=== PATIENT | female | born 1960 | race Caucasian/White ===

== ENCOUNTER 2016-08-20 10:35 | Emergency (ER) | payer OTHER ==
[2016-08-20 10:56] VITALS: TEMP 98.3; BMI 22.3
--- NOTE | 2016-08-20 11:52 | PDOC ---
History of Present Illness - General Chief Complaint: Pain Stated Complaint: FEVER, COLD, BACK PAIN Time Seen by Provider: 08/20/16 11:19 History Source: Patient Exam Limitations: No Limitations - History of Present Illness Initial Comments: CHIEF COMPLAINT: 56 y/o afebrile female with PMH HTN, HLD c/o fever and body aches for the past 3 days. HISTORY OF PRESENT ILLNESS: She has not taken her temperature at home but has been taking tylenol for her symptoms. She also admits to minor dry cough, nausea and diarrhea. She denies neck pain, runny nose, productive cough, CP, SOB, abd pain, back pain, hematuria, dysuria. She does believe she got the flu shot this year. Vital signs on arrival are within normal limits. REVIEW OF SYSTEMS: GENERAL/CONSTITUTIONAL: Tactile fever. +body aches. No weakness. No weight change. HEAD, EYES, EARS, NOSE AND THROAT: No change in vision. No ear pain or discharge. No sore throat. CARDIOVASCULAR: No chest pain or shortness of breath. RESPIRATORY: +dry cough. No wheezing, or hemoptysis. GASTROINTESTINAL: +nausea and diarrhea. No abd pain or vomiting. GENITOURINARY: No dysuria, frequency, or change in urination. MUSCULOSKELETAL: No joint or muscle swelling or pain. No neck or back pain. SKIN: No rash or easy bruising. NEUROLOGIC: No headache, vertigo, loss of consciousness, or loss of sensation. PHYSICAL EXAM: GENERAL: The patient is awake, alert, and fully oriented, in no acute distress. She is non toxic but ill appearing. Very intermittent dry cough. HEAD: Normal with no signs of trauma. ENT: Pupils equal, round and reactive to light, extraocular movements intact, sclera anicteric, conjunctiva clear. Neck supple. LUNGS: Clear to auscultation bilaterally. Normal excursion. No respiratory distress or use of accessory muscles. CV: RRR, S1/S2, no MRG. Cap refill < 2 sec. ABDOMEN: Soft, non-distended, non-tender even to deep palpation, no hepatomegaly or splenomegaly, no masses. EXTREMITIES: Normal range of motion, no edema. NEUROLOGICAL: Normal speech, normal gait. CN II-XII grossly intact. PSYCH: Normal mood, normal affect. SKIN: Warm, dry, normal turgor, no rashes or lesions noted. Past History - Past Medical History Allergies/Adverse Reactions: Allergies Allergy/AdvReac Type Severity Reaction Status Date / Time No Known Allergies Allergy Verified 08/20/16 10:49 Home Medications: Ambulatory Orders Pantoprazole Sodium [Protonix -] 40 mg PO DAILY 01/26/13 Carbamazepine [Tegretol -] 100 mg PO BID #20 tab.chew 06/09/14 Hydrochlorothiazide [Hctz -] 25 mg PO DAILY 02/17/15 Ibuprofen [Motrin -] 600 mg PO TID #30 tablet 07/03/15 Ketotifen Fumarate [Alaway] 1 drop OU Q12H #1 drops 02/21/16 Cephalexin Monohydrate [Keflex -] 500 mg PO BID #10 capsule 08/20/16 Anemia: No Diabetes: No GI Disorders: Yes (BACTERIA) HTN: Yes Hypercholesterolemia: Yes Suicide Attempt (Hx): No Thyroid Disease: Yes - Surgical History Abdominal Surgery: Yes (TUBAL LIGATION) - Family Disease History Family Disease History: Diabetes: Father - Immunization History Td Vaccination: Yes TDAP Vaccination: Yes Immunization Up to Date: Yes - Psycho/Social/Smoking Cessation Hx Anxiety: No Suicidal Ideation: No Smoking Status: No Smoking History: Never smoked Have you smoked in the past 12 months: No Number of Cigarettes Smoked Daily: 0 Information on smoking cessation initiated: No Hx Alcohol Use: No Drug/Substance Use Hx: No Substance Use Type: None *Physical Exam - Vital Signs Last Vital Signs Temp Pulse Resp BP Pulse Ox 98.3 F 95 H 18 130/80 98 08/20/16 10:50 08/20/16 10:50 08/20/16 10:50 08/20/16 10:50 08/20/16 10:50 ED Treatment Course - LABORATORY CBC & Chemistry Diagram: 08/20/16 12:00 08/20/16 12:00 Medical Decision Making - Medical Decision Making A/P: 56 y/o afebrile female with flu like symptoms. Plan is as follows: 1. Labs 2. Influenza swab 3. UA/culture 4. IV fluids 5. IV zofran and toradol Influenza B - Positive UA with +blood and 2+ ketones. Will treat with Keflex. Informed the patient of the results. Since she has had flu symptoms for the past 3 days, will not send tamiflu. Suggested she continue taking tylenol every 4 hours for fever, drink plenty of fluids and get lots of rest. Instructed her to take entire 5 day course of antibiotics and return to the ER with any worsening or concerning symptosm. The patient verbalizes understanding of all instructions, has no further questions and is awaiting discharge. *DC/Admit/Observation/Transfer Diagnosis at time of Disposition: Influenza B UTI (urinary tract infection) Qualifiers: Urinary tract infection type: acute cystitis Hematuria presence: with hematuria Qualified Code(s): N30.01 - Acute cystitis with hematuria - Discharge Dispostion Disposition: HOME Condition at time of disposition: Improved - Referrals Referrals: Abby Orlando [Primary Care Provider] - - Patient Instructions Printed Discharge Instructions: DI for Influenza -- Adult, DI for Urinary Tract Infection (UTI) Additional Instructions: Discharge Instructions: -Take antibiotics as prescribed for Urinary Tract Infection -You have Influenza B -You will continue to have fevers and feel unwell for another 3-5 days -Continue to take Tylenol every 4 hours for fever -Follow up with your doctor within 1 week -Return to the ER with any worsening or concerning symptoms. Print Language: POLISH - Post Discharge Activity Work/School Note: Back to Work
[2016-08-20] MEDS ORDERED: ONDANSETRON 4 MG/2 ML VIAL IVPUSH ONE (11:53)
[2016-08-20] MEDS ORDERED: SODIUM CHLORIDE 1,000 ML IV STA (11:53)
[2016-08-20] MEDS ORDERED: KETOROLAC TROMETHAMINE 30 MG/1 ML VIAL IVPUSH ONE (11:53)
[2016-08-20] MEDS ORDERED: ONDANSETRON 4 MG/2 ML VIAL ONE ×2 (12:06)
[2016-08-20] MEDS ORDERED: KETOROLAC TROMETHAMINE 30 MG/1 ML VIAL ONE (12:06)
[2016-08-20 12:14] LABS: BASOPHIL 0.4 % (0-2.0); EOSINOPHIL 0.2 % (0-4.5); MCH 28.7 pg (25.7-33.7); MCHC 33.1 g/dl (32.0-36.0); MEAN CELL VOLUME 86.6 fl (80-96); MEAN PLT VOLUME 8.7 fl (7.5-11.1); NEUTROPHILS 55.7 % (42.8-82.8); PLATELET COUNT 143 K/MM3 (134-434); RDW 12.9 % (11.6-15.6); WHITE BLOOD COUNT 4.4 K/mm3 (4.0-10.0)
[2016-08-20 12:43] LABS: ALBUMIN 3.8 g/dl (3.4-5.0); BILIRUBIN,TOTAL 0.5 mg/dL (0.2-1.0); CALCIUM 9.1 mg/dL (8.5-10.1); TOT PROT 7.4 g/dl (6.4-8.2)
[2016-08-20 12:56] LABS: URINE APPEARANCE CLEAR; URINE BILIRUBIN NEGATIVE (NEGATIVE); URINE COLOR DKYELLOW; URINE GLUCOSE (UA) NEGATIVE (NEGATIVE); URINE KETONE TRACE (NEGATIVE); URINE NITRITE NEGATIVE (NEGATIVE); URINE UROBILINOGEN 2.0 E.U/dl E.U./dl (0.2-1.0)
[2016-08-20 13:04] LABS: URINE BLOOD 1+ (NEGATIVE); URINE LEUK ESTERASE 2+ (NEGATIVE); URINE PROTEIN 2+ (NEGATIVE)
[2016-08-20 13:21] LABS: URINE HYALINE CAST 4 /lpf; URINE MUCUS MANY; URINE RBC 5 /hpf (0-3); URINE WBC 14 /hpf (3-5)
[2016-08-20 14:19] VITALS: BP 146/87; PULSE 87
== END 2016-08-20 14:14 | disposition home or self-care (01) ==
LOC: JER 10:35
PROC: 3E0333Z Introduction of Anti-inflammatory into Peripheral Vein, Percutaneous Approach (ICD-10-PCS; principal; 2016-08-20)
PROC: 3E033GC Introduction of Other Therapeutic Substance into Peripheral Vein, Percutaneous Approach (ICD-10-PCS; 2016-08-20)
DX: J10.1 Influenza due to other identified influenza virus with other respiratory manifestations (principal); N30.01 Acute cystitis with hematuria; I10 Essential (primary) hypertension
CPT/HCPCS: 36415; 80053; 81003; 81015; 85025; 87086; 87804; 96374; 96375; 99281-25

== ENCOUNTER 2018-05-07 10:24 | Emergency (ER) | payer OTHER ==
[2018-05-07 10:29] VITALS: BP 127/73; PULSE 95; TEMP 98.1; BMI 23.0
--- NOTE | 2018-05-07 10:55 | PDOC ---
History of Present Illness - General Chief Complaint: Back Pain Stated Complaint: BACK PAIN Time Seen by Provider: 05/07/18 10:36 History Source: Patient Exam Limitations: No Limitations - History of Present Illness Occurred: reports: last week Severity: reports: moderate Pain Location: reports: back, neck Method of Injury: Yes: unknown Modifying Factors: improves with: pain medication Loss of Consciousness: no loss of consciousness Associated Symptoms (Fall): denies symptoms Past History - Travel Traveled outside of the country in the last 30 days: No Close contact w/someone who was outside of country & ill: No - Past Medical History Allergies/Adverse Reactions: Allergies Allergy/AdvReac Type Severity Reaction Status Date / Time No Known Allergies Allergy Verified 08/20/16 10:49 Home Medications: Ambulatory Orders Pantoprazole Sodium [Protonix -] 40 mg PO DAILY 01/26/13 Carbamazepine [Tegretol -] 100 mg PO BID #20 tab.chew 06/09/14 Hydrochlorothiazide [Hctz -] 25 mg PO DAILY 02/17/15 Cyclobenzaprine HCl 10 mg PO Q8H PRN #14 tablet 05/07/18 Ibuprofen [Motrin -] 600 mg PO TID PRN 05/07/18 Naproxen [Naprosyn -] 500 mg PO BID #30 tablet 05/07/18 Anemia: No Diabetes: No GI Disorders: Yes (BACTERIA) HTN: Yes Hypercholesterolemia: Yes Thyroid Disease: Yes - Surgical History Abdominal Surgery: Yes (TUBAL LIGATION) - Family Disease History Family Disease History: Diabetes: Father - Immunization History Td Vaccination: Yes TDAP Vaccination: Yes Immunization Up to Date: Yes - Suicide/Smoking/Psychosocial Hx Smoking Status: No Smoking History: Never smoked Have you smoked in the past 12 months: No Number of Cigarettes Smoked Daily: 0 Hx Alcohol Use: No Drug/Substance Use Hx: No Substance Use Type: None Trauma Specific PMHX - Complaint Specific PMHX Back Injury: No Neck Injury: No Review of Systems - Review of Systems Able to Perform ROS?: Yes Is the patient limited Welsh proficient: Yes Constitutional: Yes: See HPI. No: Symptoms Reported, Chills, Fever, Malaise HEENTM: Yes: See HPI. No: Symptoms Reported Respiratory: Yes: See HPI. No: Symptoms reported, Cough, Wheezing ABD/GI: Yes: See HPI. No: Symptoms Reported, Constipated, Vomiting : Yes: See HPI. No: Symptoms Reported, Burning, Dysuria, Discharge, Flank Pain Musculoskeletal: Yes: Symptoms Reported, See HPI, Back Pain, Joint Swelling ( hips/ worse on the right with radiation down buttock/posterior leg), Muscle Pain Integumentary: Yes: See HPI. No: Symptoms Reported, Rash Neurological: No: Symptoms reported All Other Systems: Reviewed and Negative *Physical Exam - Vital Signs Last Vital Signs Temp Pulse Resp BP Pulse Ox 98.1 F 95 H 18 127/73 99 05/07/18 10:28 05/07/18 10:28 05/07/18 10:28 05/07/18 10:28 05/07/18 10:28 - Physical Exam General Appearance: Yes: Nourished, Appropriately Dressed, Apparent Distress, Mild Distress HEENT: positive: ALYSA, TMs Normal, Pharynx Normal Neck: positive: Supple. negative: Lymphadenopathy (R), Lymphadenopathy (L) Respiratory/Chest: positive: Lungs Clear, Normal Breath Sounds Gastrointestinal/Abdominal: positive: Normal Bowel Sounds, Soft. negative: Tender Musculoskeletal: positive: Normal Inspection, Muscle Spasm (tense tight muscles to low paravertebral muscles along lumbar areas. NO parasthesias/ ). negative: Vertebral Tenderness Extremity: positive: Normal Capillary Refill, Normal Inspection. negative: Normal Range of Motion (limited ), Tender Integumentary: positive: Normal Color, Dry, Warm. 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 consultant II-XII NML intact, Fully Oriented, Alert, Normal Mood/ Affect, Normal Response, Motor Strength 5/5 Progress Note - Progress Note Progress Note: low back strain, we'll treat with NSAIDs and cyclobenzaprine *DC/Admit/Observation/Transfer Diagnosis at time of Disposition: Low back strain Qualifiers: Encounter type: initial encounter Qualified Code(s): S39.012A - Strain of muscle, fascia and tendon of lower back, initial encounter - Discharge Dispostion Disposition: HOME Condition at time of disposition: Stable Decision to Admit order: No - Prescriptions Prescriptions: Cyclobenzaprine HCl 10 mg PO Q8H PRN #14 tablet PRN Reason: spasm Naproxen [Naprosyn -] 500 mg PO BID #30 tablet - Referrals Referrals: Abby Orlando [Primary Care Provider] - - Patient Instructions Printed Discharge Instructions: DI for Back Strain or Sprain Additional Instructions: Rest, no heavy lifting or exercise until pain is resolved Hot soaks to neck and low back as often as possible/hot showers or Jacuzzis No massage or therapy until spasm is gone Continue Naprosyn 500 mg tablet, 1 tablet every 12 hours for the next 3 days then as needed for pain and swelling Cyclobenzaprine 1-10mg every 8 hours as needed for spasm If not significant improvement within 24 hours with medication and rest regime, followup with private physician for change in medications and /or therapy. - Post Discharge Activity Forms/Work/School Notes: Back to Work
== END 2018-05-07 11:16 | disposition home or self-care (01) ==
LOC: JERFT 10:24
DX: S39.012A Strain of muscle, fascia and tendon of lower back, initial encounter (principal); X58.XXXA Exposure to other specified factors, initial encounter; Y93.89 Activity, other specified; Y92.89 Other specified places as the place of occurrence of the external cause; Y99.8 Other external cause status
CPT/HCPCS: 99281-25

== ENCOUNTER 2019-06-12 12:21 | Emergency (ER) | payer OTHER ==
[2019-06-12 12:49] VITALS: BP 142/77; PULSE 89; TEMP 97.8; BMI 27.3
[2019-06-12] MEDS ORDERED: DIPHTH,PERTUSS(ACELL),TET 0.5 ML DISP.SYRIN IM ONE ×2 (13:01→13:11)
--- NOTE | 2019-06-12 13:04 | PDOC ---
History of Present Illness - General Chief Complaint: Wound Stated Complaint: RT SIDE FOOT PAIN/ ANKLE Time Seen by Provider: 06/12/19 12:52 - History of Present Illness Initial Comments: 06/12/19 13:01 59-year-old female without comorbidities presents for evaluation of left foot pain. 10 days ago she fell and scraped her foot on a concrete stone causing an abrasion she is here requesting a work note till Tuesday and for a wound check she is not current on tetanus. Past History - Past Medical History Allergies/Adverse Reactions: Allergies Allergy/AdvReac Type Severity Reaction Status Date / Time No Known Allergies Allergy Verified 06/12/19 12:52 Home Medications: Ambulatory Orders Pantoprazole Sodium [Protonix -] 40 mg PO DAILY 01/26/13 Carbamazepine [Tegretol -] 100 mg PO BID #20 tab.chew 06/09/14 Hydrochlorothiazide [Hctz -] 25 mg PO DAILY 02/17/15 Cyclobenzaprine HCl 10 mg PO Q8H PRN #14 tablet 05/07/18 Ibuprofen [Motrin -] 600 mg PO TID PRN 05/07/18 Naproxen [Naprosyn -] 500 mg PO BID #30 tablet 05/07/18 Anemia: No COPD: No Diabetes: No GI Disorders: Yes (BACTERIA) HTN: Yes Hypercholesterolemia: Yes Thyroid Disease: Yes - Surgical History Abdominal Surgery: Yes (TUBAL LIGATION) - Immunization History Td Vaccination: Yes TDAP Vaccination: Yes Immunization Up to Date: Yes - Psycho Social/Smoking Cessation Hx Smoking Status: No Smoking History: Never smoked Have you smoked in the past 12 months: No Number of Cigarettes Smoked Daily: 0 Hx Alcohol Use: No Drug/Substance Use Hx: No Substance Use Type: None Review of Systems - Review of Systems Musculoskeletal: Yes: See HPI *Physical Exam - Vital Signs Last Vital Signs Temp Pulse Resp BP Pulse Ox 97.8 F 89 18 142/77 99 06/12/19 12:46 06/12/19 12:46 06/12/19 12:46 06/12/19 12:46 06/12/19 12:46 - Physical Exam 06/12/19 13:02 There is a superficial abrasion with formed eschar on the medial aspect of the left foot on the skin overlying the first MTPJ as well as the skin over the navicular. There are no gross sensorimotor deficits neurovascularly intact normal surrounding skin color and temperature without indication of secondary infection. Medical Decision Making - Medical Decision Making 06/12/19 13:02 No infection in this wound. Tetanus was updated. Weight-bear as tolerated. Work note provided. No p.o. antibiotics required. Discussed soap and water for wound care leaving the area open to air as much as possible. Discharge - Discharge Information Problems reviewed: Yes Clinical Impression/Diagnosis: Visit for wound check Condition: Stable Disposition: HOME - Admission No - Follow up/Referral Referrals: Lillie Felton MD [Staff Physician] - - Patient Discharge Instructions Additional Instructions: Please keep the wound clean and dry with normal soap and water. Please leave the area open to air as much as possible. If you leave the house and need to work or be active you may cover it with a dry sterile dressing such as a large Band-Aid. Return to the emergency room for worsening symptoms. Without fail follow-up with primary care physician in 1 to 2 days for further evaluation and treatment options. - Post Discharge Activity Work/Back to School Note: Back to Work
== END 2019-06-12 13:16 | disposition home or self-care (01) ==
LOC: JERFT 12:21
PROC: 3E0234Z Introduction of Serum, Toxoid and Vaccine into Muscle, Percutaneous Approach (ICD-10-PCS; principal; 2019-06-12)
DX: Z48.00 Encounter for change or removal of nonsurgical wound dressing (principal); I10 Essential (primary) hypertension; E07.9 Disorder of thyroid, unspecified
CPT/HCPCS: 90715; 99281-25